=== PATIENT | female | born 1930 | race Caucasian/White ===

== ENCOUNTER → 2016-06-11 | Outpatient (CLI) | payer MEDICARE ==
[~2016-06-11] MED LIST: ASCO500 PO; ASPI-1093 PO; ATOR20TA86 PO; Aspirin PO; BETH25 PO; BIOT5CAP10 PO; Benzonatate PO; CALC-895 PO; DOCU250C91 PO; GABA-533 PO; ISOS60TA PO; Isosorbide Mononitrate PO; LACT10SO PO; LACT1CAP50 PO; LEVO100 PO; LEVO100T14 PO; MELO-273 PO; MELO7.5T12 PO; METO100XL PO; MIRAUD PO; MULT-1259 PO; MULT-22 PO; OMEP20 PO; OMEP20TA2 PO; PERCT PO; SENN-161 PO; TAMS-1 PO; TIOT185 IH; VITAD1000 PO; ZINC50TA62 PO
== END | disposition home or self-care (01) ==
LOC: RADPV 14:10
PROVIDERS: ATTEND Internal Medicine Cardiovascular Disease
DX: I50.1 Left ventricular failure, unspecified (principal)
CPT/HCPCS: 93306